=== PATIENT | male | born 1970 | race Caucasian/White ===

== ENCOUNTER 2019-11-09 15:51 | Emergency (ER) | payer OTHER ==
[~2019-11-09] VITALS: Ht 157.5 cm; Wt 91.6 kg
[2019-11-09 15:57] VITALS: BP 196/125
[2019-11-09] MEDS ORDERED: KETOROLAC 60 MG/2 ML VIAL IM ONE (16:35)
[2019-11-09 17:14] VITALS: BP 157/97
== END 2019-11-09 17:14 | disposition home or self-care (01) ==
LOC: MED 15:51
DX: S63.614A Unspecified sprain of right ring finger, initial encounter (principal); S63.612A Unspecified sprain of right middle finger, initial encounter; I10 Essential (primary) hypertension; X58.XXXA Exposure to other specified factors, initial encounter; Y93.89 Activity, other specified; Y92.89 Other specified places as the place of occurrence of the external cause; Y99.8 Other external cause status
CPT/HCPCS: 96372; 99283; J1885